=== PATIENT | female | born 1985 | race Caucasian/White ===

== ENCOUNTER 2018-03-01 17:05 | Inpatient (IN) | payer BC ==
[~2018-03-01] VITALS: Ht 154.9 cm; Wt 72.3 kg
[2018-03-01] VITALS (23 sets, daily range): BP systolic 103–125; BP diastolic 56–79; PULSE 82–112; TEMP 97.9–98.5
[2018-03-01] MEDS ORDERED: PRENATAL1 TA7 PO (17:35)
[2018-03-01 18:42] LABS: BASO # 0.1 (0.0-0.2); BASO % 0.3 % (0.0-2.0); EOS # 0.1 (0.0-0.7); EOS % 0.6 % (0-4.0); GRAN # 11.9 (1.4-6.5); GRAN % 83.2 % (42.2-75.2); HEMOGLOBIN 11.5 g/dl (12.5-16.0); LYMPH # 1.6 (1.2-3.4); LYMPH % 11.2 % (20.0-51.0); MEAN CELL VOLUME 86 fl (80.0-100.0); MEAN CORPUSCULAR HEMOGLOBIN 30 pg (27.0-31.0); MEAN CORPUSCULAR HGB CONC 34 g/dl (33.0-37.0); MEAN PLATELET VOLUME 9.4 fl (7.4-10.4); MONO # 0.6 (0.1-0.6); MONO % 4.2 % (1.7-9.3); PLATELET COUNT 277 K/mm3 (130-400); REDCELL DISTRIBUTION WIDTH-CV 13.4 % (11.5-14.5)
[2018-03-01 18:44] LABS: HEMATOCRIT 33.7 % (37.0-47.0)
[2018-03-02] VITALS (22 sets, daily range): BP systolic 98–127; BP diastolic 46–76; PULSE 74–98; TEMP 98.1–98.5
[2018-03-02] MEDS ORDERED: IBU600 MG PO (10:17)
[2018-03-02] MEDS ORDERED: PERCOCET 325 MG1 TA2 PO (10:17)
[2018-03-03 07:15] VITALS: BP 126/76; PULSE 78; TEMP 98.2
[2018-03-03 16:10] VITALS: BP 116/71; PULSE 82; TEMP 98.5
[2018-03-03 20:00] VITALS: BP 128/80; PULSE 87; TEMP 97.6
[2018-03-04 08:00] VITALS: BP 117/69; PULSE 82; TEMP 97.8
== END 2018-03-04 12:00 | disposition home or self-care (01) | DRG 766 ==
LOC: LDR 17:05 → OB 17:50
PROVIDERS: Obstetrics & Gynecology
PROC: 10D00Z1 Extraction of Products of Conception, Low, Open Approach (ICD-10-PCS; principal; 2018-03-01)
DX: O60.13X0 Preterm labor second trimester with preterm delivery third trimester, not applicable or unspecified (principal); O76 Abnormality in fetal heart rate and rhythm complicating labor and delivery; Z37.0 Single live birth; Z3A.35 35 weeks gestation of pregnancy
CPT/HCPCS: J0690; J1200; J1885; J2175; J2370; J2400; J2405; J2540; J2590; J3010; J7120